=== PATIENT | male | born 1940 | race Caucasian/White ===

== ENCOUNTER 2017-07-10 02:10 | Outpatient (CLI) | payer MEDICARE, OTHER | END 2017-07-10 23:59 | disposition home or self-care (01) | LOC: DIABETIC 02:10 | PROVIDERS: ATTEND Specialist | DX: E11.65 Type 2 diabetes mellitus with hyperglycemia (principal) | CPT/HCPCS: G0108 ==

== ENCOUNTER 2017-08-13 04:46 | Outpatient (CLI) | payer OTHER | END 2017-08-13 23:59 | disposition home or self-care (01) | LOC: DIABETIC 04:46 | PROVIDERS: ATTEND Specialist | DX: E11.65 Type 2 diabetes mellitus with hyperglycemia (principal) | CPT/HCPCS: G0108 ==